=== PATIENT | male | born 1970 | race Caucasian/White ===

== ENCOUNTER 2019-09-14 17:14 | Emergency (ER) | payer SELFPAY ==
[2019-09-14] MEDS ORDERED: KETOROLAC TROMETHAMINE INJ/PF 30 MG/1 ML SDV IV ONE (17:26)
[2019-09-14] MEDS ORDERED: NORMAL SALINE 1000 ML 1,000 ML IV ONE ×2 (17:26→18:27)
--- NOTE | 2019-09-14 17:42 | ER Document Report ---
ED Medical Screen (RME) - General Chief Complaint: Abscess Stated Complaint: ABSCESS/GROIN Time Seen by Provider: 09/14/19 17:18 Mode of Arrival: Ambulatory Information source: Patient Notes: Patient is a 48-year-old male comes emergency room today stating that he has an abscess that is located at the base of his scrotum up to his anus. Patient states he is a diabetic oral dependent he has a history of having an abscess in the area in the past and also having a sweat gland blockage that was removed in the same area. Patient states this pain and discomfort started approximately 2 days ago and is gotten worse. Patient went to [facility] and was sent here because they said there was nothing they could do. Patient does state that his diabetes has been out of sorts lately he has been over 300 most of the time. He however only takes metformin. He has only history of hypertension and he had one surgery where they removed his L right ittle toe secondary to a staph infection. He also has a history of neuropathy. Physical exam: Patient is a well-nourished well-developed 48-year-old male who is in no apparent distress. Patient does appear somewhat uncomfortable. Cardiac: Patient displays regular rate and rhythm with no murmurs. Lungs: Lateral breath sounds decreased throughout no rhonchi rales or wheeze heard. Abdomen: Bowel sounds present all 4 quads nontender to palpate. Rectal area. That this time patient will be taken to the back for further evaluation of the area of complaint. However given his history of having staph infection and a toe amputation secondary to insufficient blood supply secondary to Staph felt is necessary to have patient taken to the back and CT the areas to rule out Fournies gangrene. I have greeted and performed a rapid initial assessment of this patient. A comprehensive ED assessment and evaluation of the patient, analysis of test results and completion of the medical decision making process will be conducted by additional ED providers. Dictation of this chart was performed using voice recognition software; therefore, there may be some unintended grammatical errors. - Related Data Allergies/Adverse Reactions: No Known Allergies Allergy (Unverified 09/14/19 17:21) Past Medical History - Social History Chew tobacco use (# tins/day): No Drug Abuse: None Physical Exam - Vital signs Vitals: Temp Pulse Resp BP Pulse Ox 99.1 F 94 18 154/72 H 100 09/14/19 17:20 09/14/19 17:20 09/14/19 17:20 09/14/19 17:20 09/14/19 17:20 Course - Vital Signs Vital signs: Temp Pulse Resp BP Pulse Ox 99.1 F 94 18 154/72 H 100 09/14/19 17:20 09/14/19 17:20 09/14/19 17:20 09/14/19 17:20 09/14/19 17:20
[2019-09-14 17:52] LABS: ABSOLUTE BASOPHILS # (AUTO) 0.1 10^3/uL (0.0-0.2); ABSOLUTE EOSINOPHILS # (AUTO) 0.2 10^3/uL (0.0-0.6); ABSOLUTE LYMPHOCYTES (AUTO) 2.4 10^3/uL (0.5-4.7); ABSOLUTE MONOCYTES (AUTO) 0.8 10^3/uL (0.1-1.4); ABSOLUTE NEUT (AUTO) 6.2 10^3/uL (1.7-8.2); BASOPHILS % (AUTO) 0.6 % (0-2); EOSINOPHILS % (AUTO) 1.6 % (0-6); HEMATOCRIT 36.9 % (37.9-51.0); LYMPHOCYTES % (AUTO) 24.7 % (13-45); MEAN CORPUSCULAR HEMOGLOBIN 29.6 pg (27.0-33.4); MEAN CORPUSCULAR HGB CONC 35.3 g/dL (32.0-36.0); MEAN CORPUSCULAR VOLUME 84 fl (80-97); MONOCYTES % (AUTO) 8.4 % (3-13); PLATELET COUNT 242 10^3/uL (150-450); RED CELL DISTRIBUTION WIDTH 13.4 % (11.5-14.0); SEGMENTED NEUTROPHILS % (AUTO) 64.7 % (42-78); TOTAL CELLS COUNTED % (AUTO) 100 %; WHITE BLOOD COUNT 9.6 10^3/uL (4.0-10.5)
[2019-09-14 18:09] LABS: ALBUMIN 4.3 g/dL (3.5-5.0); ALKALINE PHOSPHATASE 95 U/L (38-126); ANION GAP 10 (5-19); ASPARTATE AMINO TRANSFERASE 19 U/L (17-59); BILIRUBIN,DIRECT 0.1 mg/dL (0.0-0.4); BILIRUBIN,TOTAL 0.5 mg/dL (0.2-1.3); BLOOD UREA NITROGEN 34 mg/dL (7-20); CALCIUM 9.9 mg/dL (8.4-10.2); CARBON DIOXIDE 23 mmol/L (22-30); CHLORIDE 101 mmol/L (98-107); GLUCOSE 208 mg/dL (75-110); TOTAL PROTEIN 8.2 g/dL (6.3-8.2)
[2019-09-14] MEDS ORDERED: ONDANSETRON HCL INJ/PF 4 MG/2 ML SDV IV ONE ×2 (18:28→22:35)
[2019-09-14] MEDS ORDERED: MORPHINE SULFATE 10 MG/ML INJ IV ONE (18:28)
[2019-09-14] MEDS ORDERED: SULFAMETHOX/TRIMETH 800-160 MG/10 ML VIAL IV ONE (18:29)
--- NOTE | 2019-09-14 18:35 | ER Document Report ---
ED General - General Mode of Arrival: Ambulatory <MARCEL FULLER - Last Filed: 09/14/19 20:04> <DAVID ORONA - Last Filed: 09/15/19 05:48> - General Chief Complaint: Abscess Stated Complaint: ABSCESS/GROIN Time Seen by Provider: 09/14/19 17:18 Primary Care Provider: [facility] [Provider Group] - 09/17/19 Notes: Patient is a 48-year-old white male with a history of hypertension, type 2 diabetes on metformin and insulin with a history of abscess formations responsive to Bactrim in the past presents to the emergency department the chief complaint of abscess formation to the perineal space. He states is been about 3 days. States is about the length of his thumb. Reports that it is in the space between the scrotum and the anus. Denies any difficulty with bowel movements or with urination. States he has had them in this area before, once treated solely with p.o. Bactrim outpatient and once requiring surgical I&D. Denies any known scrotal involvement or testicular pain or swelling. Denies any dysuria or blood per rectum. He admits that there is some bloody/purulent drainage from the site of abscess. Denies any fever or chills. He notes that his blood sugar has been uncontrolled lately due to being out of insulin. He called his seating upholsterer who advised he needed to see him in the office before he could be given a p rescription for his insulin. He states he is from [place], out of town here on work. Denies any history of any kidney problems. No abdominal pain, nausea vomiting or diarrhea. (MARCEL FULLER) - Related Data Allergies/Adverse Reactions: No Known Allergies Allergy (Unverified 09/14/19 17:21) Past Medical History - General Information source: Patient - Social History Smoking Status: Never Smoker Chew tobacco use (# tins/day): No Drug Abuse: None Family History: Reviewed & Not Pertinent Patient has homicidal ideation: No <MARCEL FULLER - Last Filed: 09/14/19 20:04> Review of Systems <MARCEL FULLER - Last Filed: 09/14/19 20:04> - Review of Systems Notes: As per HPI otherwise negative (MARCEL FULLER) Physical Exam - General General appearance: Appears well, Alert In distress: None - Respiratory Respiratory status: No respiratory distress Chest status: Nontender Breath sounds: Normal Chest palpation: Normal - Cardiovascular Rhythm: Regular Heart sounds: Normal auscultation Murmur: No - Abdominal Inspection: Normal Distension: No distension Bowel sounds: Normal Tenderness: Nontender Organomegaly: No organomegaly - Extremities General upper extremity: Normal inspection, Nontender, Normal color, Normal ROM, Normal temperature General lower extremity: Normal inspection, Nontender, Normal color, Normal ROM, Normal temperature, Normal weight bearing. No: Lissy's sign - Neurological Neuro grossly intact: Yes Cognition: Normal Orientation: AAOx4 - Psychological Associated symptoms: Normal affect, Normal mood - Skin Skin Color: Other - Normal except area described above. <MARCEL FULLER - Last Filed: 09/14/19 20:04> - Vital signs Vitals: Temp Pulse Resp BP Pulse Ox 99.1 F 94 18 154/72 H 100 09/14/19 17:20 09/14/19 17:20 09/14/19 17:20 09/14/19 17:20 09/14/19 17:20 - Genitourinary Notes: Perineal abscess that is tracking linearly between the anus and posterior scrotum. There appears to be some mild extension into the right hemiscrotum posteriorly. The areas are tender to palpation. Some increased warmth is noted. There is some bloody purulent drainage from the posterior/distal aspect of the abscess closest to the anal perennial border. There appears to be no anal involvement. No epididymal tenderness. Exam chaperoned by female nurse. (MARCEL FULLER) Course - Laboratory Result Diagrams: 09/14/19 17:38 09/14/19 17:38 <MARCEL FULLER - Last Filed: 09/14/19 20:04> - Laboratory Result Diagrams: 09/14/19 17:38 09/14/19 23:46 <DAVID ORONA - Last Filed: 09/15/19 05:48> - Re-evaluation Re-evalutation: 09/14/19 18:33 Patient denies any known history of any kidney problems. Denies ever being told he had an elevated kidney function. We have no baseline to compare for him. CT scan with IV contrast was canceled and will perform ultrasound evaluation instead given his kidney function. He will be hydrated with 2 L normal saline. He adds that his blood sugar has been largely uncontrolled recently due to being out of insulin and is curious that this may have caused this problem. States his blood pressure is normally well regulated with lisinopril. Denies any back or abdominal pain. No urinary difficulties. Normal white count. We will give IV Bactrim here as Bactrim is worked well for him in the past. After IV hydration will repeat the creatinine, if improved will attempt to discharge home with Bactrim, short course of pain medications and perhaps the insulin that the patient is knowledgeable of his dosing. If ultrasound shows any intervention this necessary patient may need to be transferred to the hospital with urologic surgery as we do not have that here. Pending work-up at this time. Patient will continue to be monitored. 09/14/19 20:04 Patient signed out to David Orona PA-C at shift change at this time pending ultrasound report, IV fluids. As noted above suspect patient would benefit from admission and surgical consult whether it is from a general surgeon who is willing to consult on these findings if scrotum is involved or if urology surgical intervention is required then for transfer. At the very least patient has DELISA and will need repeat creatinine. Unsure if he knows his home dose of insulin. Pending remainder of work-up to determine admission/transfer or discharge. (MARCEL FULLER) Ultrasound showing 4 cm x 2 cm abscess in the perineum adjacent to the scrotum. I do not see streaking away from this, there is no fever, no leukocytosis, evaluation is not consistent with Victor Hugo's gangrene. However because of the location and extent of the abscess along with having multiple abscesses in the same place in the past, I did call and speak with Dr. Flores, general surgery. Dr. Flores recommends we set up for incision and drainage, prepare to give patient some light sedation/comfort, and I will assist with incision and drainage of the location. Patient has been given 1 mg of Dilaudid with Zofran. Patient was given 2.5 mg of Versed, this caused relaxation but not full sedation, confirmed with Dr. Pink beforehand; incision and drainage was perf ormed by Dr. Flores with large amount of purulent drainage. He did pack the area with half-inch iodoform gauze. He recommends Bactrim, close follow-up in the surgical clinic, return precautions. I discussed with patient. I repeated his BMP after IV fluids and his creatinine is significantly improved. Blood glucose in the 200s. I offered to fill insulin for him but he declined, he states that he will monitor his sugars and diet, he states he has a 2-week follow-up with his provider and they will be providing him with either additional oral medications or insulin, he does not want to adjust at this point. He states he will take the antibiotic, he states understanding for care of the wound, he states he will return if he worsens in any way. Stable and well-appearing at time of discharge. (DAVID ORONA) - Vital Signs Vital signs: Temp Pulse Resp BP Pulse Ox 97.8 F 94 15 149/85 H 100 09/15/19 01:30 09/14/19 17:20 09/14/19 23:00 09/15/19 01:12 09/15/19 01:11 - Laboratory Laboratory results interpreted by me: 09/14/19 09/14/19 09/14/19 17:38 17:38 23:46 Hgb 13.0 L Hct 36.9 L Sodium 134.3 L 132.0 L Anion Gap 4 L BUN 34 H 30 H Creatinine 2.15 H 1.49 H Est GFR ( Amer) 40 L Est GFR (MDRD) Non-Af 33 L 51 L Glucose 208 H 227 H Calcium 8.3 L Discharge <MARCEL FULLER - Last Filed: 09/14/19 20:04> <DAVID ORONA - Last Filed: 09/15/19 05:48> - Discharge Clinical Impression: Abscess, perineum Condition: Stable Disposition: HOME, SELF-CARE Additional Instructions: The abscess has been drained and packed. The packing needs to be removed in 2 days. Please follow-up with the surgical clinic on Tuesday. You were seen, evaluated, and treated by Dr. Florse (General surgery) nicole. Take the antibiotic as prescribed, take the pain medication if needed. Keep the area clean, clean with soap and water, keep absorbent dressing over the area. Return if you worsen including developing or spreading redness, spiking fevers, vomiting, or any other concerning symptoms. Prescriptions: Sulfamethoxazole/Trimethoprim [Bactrim Ds Tablet] 1 each PO BID #14 tablet Oxycodone HCl/Acetaminophen [Percocet 5-325 mg Tablet] 1 tab PO TID PRN #12 tab PRN Reason: Referrals: [facility] [Provider Group] - 09/17/19
--- NOTE | 2019-09-14 22:02 | RADIOLOGY REPORT (SQ) ---
EXAM DESCRIPTION: Scrotal ultrasound CLINICAL HISTORY: 48 years Male; ? Abscess extension TECHNIQUE: Terrell-scale, color, and spectral Doppler images were obtained of the testes and scrotum. COMPARISON: None FINDINGS: Right testicle: The right testicle measures 4.6 x 4.0 x 3.0 cm. There appears to be increased vascularity in the testicle and the echotexture is mildly heterogeneous. Small hydrocele is identified. There is heterogeneous appearance of the scrotal sac adjacent to the testicle with multiple specular bright areas which minimally shadow which may represent air in the associated soft tissues. Left testicle: The testicle measures 4.2 x 3.0 x 2.0 cm. Echogenicity is within normal limits. The epididymis measures 13 mm and contains a small cyst which measures up to 8 mm. Trace hydrocele.. Other: Right of the scrotum is a focal fluid collection which measures 3.9 x 3.7 x 2.0 cm and has multiple bright echogenic areas suggesting air. This is the area of the patient has pain and swelling and. Some appearance of this does extend into the soft tissues adjacent to the right testicle. The technologist does not comment on the abnormal appearance of the scrotum adjacent to the right testicle. IMPRESSION: Loculated fluid collection containing air measuring 3.9 x 3.7 x 2.0 cm to the right of the scrotum. This is concerning for an abscess. There is some echogenic reflectors seen in the soft tissues surrounding the right testicle which may represent air in the soft tissues. Hyperemia of the right testicle consistent with orchitis.
[2019-09-14] MEDS ORDERED: LIDOCAINE 1%/EPINEPHRINE INJ 20 ML VIAL INJ ONE (22:24)
[2019-09-14] MEDS ORDERED: LIDOCAINE 1% INJ-PF (10 MG/ML) 30 ML SDV ONE (22:34)
[2019-09-14] MEDS ORDERED: HYDROMORPHONE HCL INJ/PF 2 MG/ML AMPULE IV ONE (22:35)
[2019-09-14] MEDS ORDERED: MIDAZOLAM 2 MG/2 ML INJ IV ONE ×2 (22:44→23:00)
--- NOTE | 2019-09-14 23:05 | Operative Report ---
Operative Report DATE OF SURGERY: 09/14/19 PREOPERATIVE DIAGNOSIS: 1. Recurrent right scrotal abscess. 2. Diabetes humble itus POSTOPERATIVE DIAGNOSIS: Same OPERATION: 1. Excisional debridement of right scrotal abscess and packing SURGEON: PAULINO JAQUEZ ANESTHESIA: Moderate Sedation TISSUE REMOVED OR ALTERED: Skin and subcutaneous tissue COMPLICATIONS: None ESTIMATED BLOOD LOSS: Scant INTRAOPERATIVE FINDINGS: See below PROCEDURE: The patient was evaluated in the minor surgery room in the emergency department. He is found to have a scrotal abscess, recurrent. Also has a history of diabetes mellitus. Bedside drainage, debridement and packing was recommended. Risk benefits and alternatives to planned procedure explained to the patient. He expressed his understanding and agreed to proceed. Surgical plan and surgical timeout conducted. Appropriate level of conscious sedation was induced with Versed, and Dilaudid. Scrotum was prepped with Betadine anesthetized 1% plain lidocaine. Proximately 4-1/2 cm incision was made vertically over the right hemiscrotum. Pus was tawnya cuated approximately 15 cc. The wound cavity was irrigated, and debrided with 4 x 4 and index finger. An ellipse of skin was removed from the hemiscrotum to allow easy access to the wound cavity. The wound did not extend subcutaneously in any direction. The wound was irrigated with peroxide, then packed with 1-1/2 feet of half-inch iodoform packing. 4 x 4's applied. Patient tolerated the procedure well. Disposition: 1. Patient to be discharged home with dressing changes after sitz bath's and irrigation. 2. Patient will follow-up in the emergency department for a wound check in approximately 3 to 4 days. 3. Patient can follow-up with [facility] if needed.
[2019-09-15 00:05] LABS: BLOOD UREA NITROGEN 30 mg/dL (7-20); CALCIUM 8.3 mg/dL (8.4-10.2); CARBON DIOXIDE 22 mmol/L (22-30); CHLORIDE 106 mmol/L (98-107); GLUCOSE 227 mg/dL (75-110); POTASSIUM 4.8 mmol/L (3.6-5.0)
[2019-09-15 00:12] LABS: ANION GAP 4 (5-19)
[2019-09-15 01:30] VITALS: BP 149/85
== END 2019-09-15 01:29 | disposition home or self-care (01) ==
LOC: ER 17:14
PROC: 0H99XZZ Drainage of Perineum Skin, External Approach (ICD-10-PCS; principal; 2019-09-14)
DX: L02.215 Cutaneous abscess of perineum (principal); I10 Essential (primary) hypertension; E11.9 Type 2 diabetes mellitus without complications; Z79.84 Long term (current) use of oral hypoglycemic drugs; Z79.4 Long term (current) use of insulin
CPT/HCPCS: 10060; 96376; 99284; 96361; 96375; 96365; 96366; 36415; 87040; 83605; 85025; 80053; 76870; 93976; J2250; J3490 ×2; J2270; J1170; J2405; J7030